=== PATIENT | male | born 1935 | race Caucasian/White ===

== ENCOUNTER 2023-09-12 10:22 | Outpatient (RCR) | payer MEDICARE, SELFPAY | END 2024-01-10 14:07 | disposition home or self-care (01) | LOC: HO.WCC 10:22 | PROVIDERS: Visit Provider Surgery | DX: L89.613 Pressure ulcer of right heel, stage 3 (principal); I25.5 Ischemic cardiomyopathy; I50.42 Chronic combined systolic (congestive) and diastolic (congestive) heart failure; Z79.01 Long term (current) use of anticoagulants; Z79.891 Long term (current) use of opiate analgesic; Z79.899 Other long term (current) drug therapy | CPT/HCPCS: 11042; 15275; 99212; Q4187 ==